=== PATIENT | male | born 1975 | race Hispanic/Latino ===

== ENCOUNTER 2022-11-07 21:50 | Emergency (ER) | payer OTHER ==
[~2022-11-07] VITALS: Ht 162.6 cm; Wt 81.6 kg
[2022-11-07] MEDS ORDERED: KETOROLAC TROMETHAMINE 30 MG/ML VIAL IV STA (23:04)
[2022-11-07] MEDS ORDERED: IOPAMIDOL 370 MG/ML 100 ML INFUS..BTL INJ ONE (23:13)
[2022-11-07] MEDS ORDERED: SODIUM CHLORIDE 0.9% 1000ML 1,000 ML IV SCH (23:15)
[2022-11-07] MEDS ORDERED: KETOROLAC TROMETHAMINE 30 MG/ML VIAL ONE (23:57)
[2022-11-07] MEDS ORDERED: SODIUM CHLORIDE 0.9% 1000ML 1,000 ML ONE (23:58)
[2022-11-08] MEDS ORDERED: CIPROFLOXACIN 500 MG TAB ONE (00:35)
[2022-11-08] MEDS ORDERED: DICYCLOMINE HCL 10 MG CAP ONE (00:35)
[2022-11-08] MEDS ORDERED: CIPROFLOXACIN 500 MG TAB PO ONE (00:45)
[2022-11-08] MEDS ORDERED: DICYCLOMINE HCL 20 MG TAB PO ONE (00:45)
[2022-11-08] MEDS ORDERED: CIPRO500 MG PO (00:56)
[2022-11-08] MEDS ORDERED: METRONIDAZOLE500 MG PO (00:57)
[2022-11-08] MEDS ORDERED: DICYCLOMINE HCL20 MG PO (00:58)
[2022-11-08] MEDS ORDERED: ONDANSETRON ODT4 MG PO (00:59)
== END 2022-11-08 01:18 | disposition home or self-care (01) ==
LOC: FSED 21:56
DX: K57.32 Diverticulitis of large intestine without perforation or abscess without bleeding (principal); I10 Essential (primary) hypertension; E78.5 Hyperlipidemia, unspecified
CPT/HCPCS: 74177; 80048; 80076; 85025; 99284; J1885; J7030; Q9967